=== PATIENT | male | born 1950 | race Caucasian/White ===

== ENCOUNTER 2024-11-15 12:52 | Outpatient (CLI) | payer MEDICARE, MEDICAID | END 2024-11-15 23:59 | disposition home or self-care (01) | LOC: LAB 12:52 | PROVIDERS: ATTEND General Practice | DX: S40.911A Unspecified superficial injury of right shoulder, initial encounter (principal); Q05.9 Spina bifida, unspecified; X58.XXXA Exposure to other specified factors, initial encounter; Y93.89 Activity, other specified; Y92.89 Other specified places as the place of occurrence of the external cause; Y99.8 Other external cause status | CPT/HCPCS: 87070; 87077; 87186 ==